=== PATIENT | female | born 1990 | race Caucasian/White ===

== ENCOUNTER → 2018-02-11 | Outpatient (CLI) | payer OTHER | LOC: M.ULTRA 07:21 | DX: R10.9 Unspecified abdominal pain (principal); R11.2 Nausea with vomiting, unspecified; R19.7 Diarrhea, unspecified ==

== ENCOUNTER → 2018-11-18 | Outpatient (CLI) | payer OTHER | LOC: M.MRI 17:00 | DX: G43.009 Migraine without aura, not intractable, without status migrainosus (principal); R52 Pain, unspecified; H53.8 Other visual disturbances ==